=== PATIENT | male | born 2000 | race Caucasian/White ===

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

== ENCOUNTER 2020-01-11 10:52 | Emergency (ER) | payer BC ==
[2020-01-11 11:08] VITALS: BP 160/102; PULSE 90
--- NOTE | 2020-01-11 11:19 | EDM.PDOC ---
ED HPI GENERAL MEDICAL PROBLEM - General Chief Complaint: General Stated Complaint: TOOTHACHE Time Seen by Provider: 01/11/20 11:18 Source of Information: Reports: Patient History Limitations: Reports: No Limitations - History of Present Illness INITIAL COMMENTS - FREE TEXT/NARRATIVE: 19-year-old male right upper dental pain. Has fractured to the tooth and has been told the tooth is and will require extraction. Now has increased pressure pain with inflammation surrounding tissue of the gumline. Monday onset worsening peaking today. Denies fever chills. Onset Date: 01/08/20 Duration: Day(s): Location: Reports: Face Quality: Reports: Ache, Pressure Severity: Moderate Improves with: Reports: None Worsens with: Reports: None Right Upper Jaw Pain Score (Numeric/FACES): 8 - Related Data Allergies Allergy/AdvReac Type Severity Reaction Status Date / Time No Known Drug Allergies Allergy Other Verified 01/11/20 11:08 Home Meds: Home Meds Ibuprofen [Motrin] 600 mg PO Q6H #20 tablet 09/01/16 [Rx] Amoxicillin [Amoxil] 875 mg PO Q12HR 7 Days #14 tablet 01/11/20 [Rx] Past Medical History HEENT History: Reports: Other (See Below) (Dental caries and fracture.) Musculoskeletal History: Reports: Fracture, Other (See Below) Other Musculoskeletal History: fingers - not sure which hand Psychiatric History: Reports: ADHD, Other (See Below) Other Psychiatric History: of medications for ADHD for 1 year - Infectious Disease History Infectious Disease History: Reports: Chicken Pox - Past Surgical History Musculoskeletal Surgical History: Reports: None Social & Family History - Family History Family Medical History: Noncontributory - Tobacco Use Smoking Status *Q: Former Smoker Used Tobacco, but Quit: Yes Month/Year Tobacco Last Used: Quit 3 months ago Second Hand Smoke Exposure: Yes - Caffeine Use Caffeine Use: Reports: Soda, Tea - Alcohol Use Days Per Week of Alcohol Use: 2 Number of Drinks Per Day: 10 Total Drinks Per Week: 20 - Recreational Drug Use Recreational Drug Use: No ED ROS GENERAL - Review of Systems Review Of Systems: Comprehensive ROS is negative, except as noted in HPI. ED EXAM, GENERAL - Physical Exam Exam: See Below Free Text/Narrative:: Alert oriented in no significant distress. PERRLA no icterus no injection. Neck soft supple no lymphadenopathy. No involvement of the auditory canals or tympanic membranes. There is no facial swelling with mild tenderness in the pre-auricular right posterior maxilla. Dentition shows questionable antoni #19, there is a significant fracture #30, neither of the showing any evidence of infection #1 shows a grayish color consistent with the appearance of the tooth structure with fracture noted. Erythema with mild edema in the gingiva and gumline. There is no tonsillar hypertrophy no tongue deviation. Neck with no lymphadenopathy, no rigidity. Breathing is within normal limits no wheezes no crackles audible. Cardiac regular Course - Vital Signs Last Recorded V/S: Last Vital Signs Temp 36.7 C 01/11/20 10:59 Pulse 90 01/11/20 10:59 Resp 16 01/11/20 10:59 BP 160/102 H 01/11/20 10:59 Pulse Ox 98 01/11/20 10:59 Departure - Departure Time of Disposition: 11:26 Disposition: Home, Self-Care 01 Condition: Good Clinical Impression: Pain, dental, Dental abscess - Discharge Information *PRESCRIPTION DRUG MONITORING PROGRAM REVIEWED*: Not Applicable *COPY OF PRESCRIPTION DRUG MONITORING REPORT IN PATIENT MARIA DEL CARMEN: Not Applicable Referrals: Cheyanne Newman NP [Primary Care Provider] - Forms: ED Department Discharge Additional Instructions: Take amoxicillin twice daily for 7 days. ibuprofen as needed for pain call your dentist Monday. Sepsis Event Note (ED) - Evaluation Sepsis Screening Result: No Definite Risk - Focused Exam Vital Signs: Vital Signs Temp Pulse Resp BP Pulse Ox 01/11/20 10:59 36.7 C 90 16 160/102 H 98 - Problem List & Annotations (1) Dental abscess SNOMED Code(s): 956131490 Code(s): K04.7 - PERIAPICAL ABSCESS WITHOUT SINUS Status: Acute Current Visit: Yes (2) Pain, dental SNOMED Code(s): 27335507 Code(s): K08.89 - OTHER SPECIFIED DISORDERS OF TEETH AND SUPPORTING STRUCTURES Status: Acute Current Visit: Yes (3) Pain due to dental caries SNOMED Code(s): 77703703, 68069965 Code(s): K02.9 - DENTAL CARIES, UNSPECIFIED Status: Acute Priority: High Current Visit: Yes - Problem List Review Problem List Initiated/Reviewed/Updated: Yes - Assessment/Plan Plan: Take amoxicillin twice daily for 7 days. ibuprofen as needed for pain call your dentist Monday.
== END 2020-01-11 11:35 | disposition home or self-care (01) ==
LOC: KA.ED 10:52
DX: K04.7 Periapical abscess without sinus (principal); Z87.891 Personal history of nicotine dependence
CPT/HCPCS: 99282; 99283

== ENCOUNTER 2022-10-28 21:38 | Emergency (ER) | payer BC ==
[2022-10-28] MEDS ORDERED: Tetracaine HCl/PF 0.5% 4 ML Bottle EYERT ONE (22:30)
[2022-10-28] MEDS ORDERED: Cephalexin 250 MG Cap PO ONE (22:44)
[2022-10-28] MEDS ORDERED: Cephalexin 250 MG Cap ONE (22:47)
[2022-10-29 03:31] VITALS: BP 150/96; PULSE 81
== END 2022-10-28 23:07 | disposition home or self-care (01) ==
LOC: SUPCPDRO 21:38 → KA.ED 21:38
DX: H00.031 Abscess of right upper eyelid (principal)
CPT/HCPCS: 99283; A9270-GY; J3490